=== PATIENT | male | born 1960 | race Caucasian/White ===

== ENCOUNTER 2019-07-09 09:41 | Emergency (ER) | payer BC, OTHER ==
--- NOTE | 2019-07-09 09:46 | ERPHSYRPT ---
- History of Present Illness Time Seen by Provider: 07/09/19 09:46 Historian: patient Exam Limitations: no limitations Physician History: 59 y/o white male, with no known h/o nephrolithiasis, presents with sudden severe left flank pain. began this am. pain worsening. no gross hematuria. pt has nkda and takes flomax daily. Timing/Duration: today Activities at Onset: none Quality: sharpness, stabbing Abdominal Pain Onset Location: flank (left) Pain Radiation: no radiation Severity of Pain-Max: moderate Severity of Pain-Current: moderate Modifying Factors: Improves With: nothing Associated Symptoms: nausea, No chest pain, No diaphoresis, No diarrhea, No shortness of breath, No vomiting Previous symptoms: no prior history Allergies/Adverse Reactions: No Known Drug Allergies Allergy (Verified 07/09/19 11:23) Hx Tetanus, Diphtheria Vaccination/Date Given: Yes Hx Influenza Vaccination/Date Given: No Hx Pneumococcal Vaccination/Date Given: No - Review of Systems Constitutional: No Symptoms Eyes: No Symptoms Ears, Nose, & Throat: No Symptoms Respiratory: No Symptoms Cardiac: No Symptoms Abdominal/Gastrointestinal: No Symptoms, Nausea Genitourinary Symptoms: Flank Pain Musculoskeletal: No Symptoms Skin: No Symptoms Neurological: No Symptoms Psychological: No Symptoms Endocrine: No Symptoms Hematologic/Lymphatic: No Symptoms Immunological/Allergic: No Symptoms All Other Systems: Reviewed and Negative - Past Medical History Pertinent Past Medical History: Yes Neurological History: No Pertinent History ENT History: No Pertinent History Cardiac History: No Pertinent History Respiratory History: No Pertinent History Endocrine Medical History: No Pertinent History Musculoskeletal History: No Pertinent History GI Medical History: No Pertinent History History: No Pertinent History Psycho-Social History: No Pertinent History Male Reproductive Disorders: Prostate Cancer - Past Surgical History Past Surgical History: Yes Neuro Surgical History: No Pertinent History Cardiac: No Pertinent History Respiratory: No Pertinent History Gastrointestinal: No Pertinent History Genitourinary: No Pertinent History Musculoskeletal: No Pertinent History Male Surgical History: No Pertinent History Other Surgical History: radiation seed implant - colonoscopy - Social History Smoking Status: Never smoker Exposure to second hand smoke: No Drug Use: none Patient Lives Alone: No - Nursing Vital Signs Nursing Vital Signs: Initial Vital Signs Temperature 99.5 F 07/09/19 10:07 Pulse Rate 77 07/09/19 10:07 Respiratory Rate 18 07/09/19 10:07 Blood Pressure 177/112 07/09/19 10:07 O2 Sat by Pulse Oximetry 98 07/09/19 10:07 Pain Scale Pain Intensity 0 - Physical Exam General Appearance: moderate distress, alert, anxiety Eye Exam: PERRL/EOMI, eyes nml inspection Ears, Nose, Throat Exam: normal ENT inspection, moist mucous membranes Neck Exam: normal inspection, non-tender, supple, full range of motion Respiratory Exam: normal breath sounds, lungs clear, airway intact, No chest tenderness, No respiratory distress Cardiovascular Exam: regular rate/rhythm, normal heart sounds, normal peripheral pulses Gastrointestinal/Abdomen Exam: soft, normal bowel sounds, No tenderness Rectal Exam: not done Back Exam: normal inspection, normal range of motion, CVA tenderness (left) Extremity Exam: normal inspection, normal range of motion, pelvis stable Neurologic Exam: alert, oriented x 3, cooperative, 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 Skin Exam: normal color, warm, dry Lymphatic Exam: No adenopathy SpO2 Interpretation: normal O2 Delivery: Room Air - Course Nursing assessment & vital signs reviewed: Yes Ordered Tests: Active Orders 24 hr Category Date Time Status IV Insertion STAT Care 07/09/19 10:09 Active ABDOMEN AND PELVIS W/0 CONTRAS [CT] Stat Exams 07/09/19 10:06 Completed CULTURE,URINE Stat Lab 07/09/19 11:52 Received UA W/RFX UR CULTURE Stat Lab 07/09/19 11:52 Results Medication Summary Generic Name Dose Route Start Last Admin Trade Name Freq PRN Reason Stop Dose Admin Ciprofloxacin 500 mg 07/09/19 12:34 Cipro 500 Mg PO 07/09/19 12:35 STAT ONE Discontinued Medications Generic Name Dose Route Start Last Admin Trade Name Freq PRN Reason Stop Dose Admin Hydromorphone HCl 1 mg 07/09/19 10:09 07/09/19 10:18 Hydromorphone 1 Mg/Ml Ampule IV 07/09/19 10:10 1 mg STAT ONE Administration Hydromorphone HCl Confirm 07/09/19 10:12 Hydromorphone 1 Mg/Ml Ampule Administered 07/09/19 10:13 Dose 1 mg .ROUTE .STK-MED ONE Sodium Chloride 1,000 mls @ 999 mls/hr 07/09/19 10:09 07/09/19 11:41 Sodium Chloride 0.9% 1000 Ml IV 07/09/19 11:09 Infused .Q1H1M STA Infusion Sodium Chloride Confirm 07/09/19 10:12 Sodium Chloride 0.9% 1000 Ml Administered 07/09/19 10:13 Dose 1,000 mls @ ud .ROUTE .STK-MED ONE Ketorolac Tromethamine 30 mg 07/09/19 10:09 07/09/19 10:18 Toradol 30 Mg Injection IV 07/09/19 10:10 30 mg STAT ONE Administration Ketorolac Tromethamine Confirm 07/09/19 10:12 Toradol 30 Mg Injection Administered 07/09/19 10:13 Dose 30 mg .ROUTE .STK-MED ONE Ondansetron HCl 4 mg 07/09/19 10:09 07/09/19 10:18 Zofran 4 Mg/2 Ml Vial IV 07/09/19 10:10 4 mg STAT ONE Administration Ondansetron HCl Confirm 07/09/19 10:11 Zofran 4 Mg/2 Ml Vial Administered 07/09/19 10:12 Dose 4 mg .ROUTE .STK-MED ONE Lab/Rad Data: Laboratory Results 07/09/19 Range/Units 11:52 Urine Color YELLOW (YELLOW) Urine Appearance CLEAR (CLEAR) Urine pH 6.0 (5-6) Ur Specific [place] 1.015 (1.005-1.025) Urine Protein NEGATIVE (Negative) Urine Ketones TRACE (NEGATIVE) Urine Blood 250 (0-5) Antoine/ul Urine Nitrite NEGATIVE (NEGATIVE) Urine Bilirubin NEGATIVE (NEGATIVE) Urine Urobilinogen NORMAL (0-1) mg/dL Ur Leukocyte Esterase TRACE (NEGATIVE) Urine WBC (Auto) 6-10 (0-5) /HPF Urine RBC (Auto) 26-50 (0-2) /HPF U Epithel Cells (Auto) RARE (FEW) /HPF Urine Bacteria (Auto) Pending U Non-Squamous Epi Cells FEW (FEW) /HPF Urine Mucus (Auto) MODERATE (NEGATIVE) /HPF Urine Culture Reflexed YES (NO) Urine Glucose 250 (NEGATIVE) mg/dL - Progress Progress: improved, re-examined Progress Note: 07/09/19 12:35 ct abd/pelvis-left distal ureterolithiasis with obstructive uropathy. stone 3 to 4mm. pt states he feels much better. Counseled pt/family regarding: lab results, diagnosis, need for follow-up, rad results - Departure Departure Disposition: Home Clinical Impression: Left ureteral stone, UTI (urinary tract infection) Condition: Stable Critical Care Time: No Referrals: [email or web address] REECE [Primary Care Provider] - Additional Instructions: drink plenty of fluid. add ibuprofen for pain as discussed. follow up with urologist at scheduled appointment time. Prescriptions: Hydrocodone/APAP 5/325 [[place] 5/325 mg] 1 each PO Q6H PRN PRN #10 tablet MDD 4 PRN Reason: Pain Ciprofloxacin [Cipro 500 MG] 500 mg PO BID #14 tablet Tamsulosin HCl 0.4 mg [Flomax 0.4 MG] 0.4 mg PO DAILY #7 cap
[2019-07-09] MEDS ORDERED: Zofran 4 MG/2 ML VIAL IV ONE (10:09)
[2019-07-09] MEDS ORDERED: Hydromorphone 1 mg/ml Ampule IV ONE (10:09)
[2019-07-09] MEDS ORDERED: TORAdol 30 mg Injection IV ONE (10:09)
[2019-07-09] MEDS ORDERED: Sodium Chloride 0.9% 1000 ML 1,000 ML IV STA (10:09)
[2019-07-09] MEDS ORDERED: Zofran 4 MG/2 ML VIAL ONE (10:11)
[2019-07-09] MEDS ORDERED: Hydromorphone 1 mg/ml Ampule ONE (10:12)
[2019-07-09] MEDS ORDERED: TORAdol 30 mg Injection ONE (10:12)
[2019-07-09] MEDS ORDERED: Sodium Chloride 0.9% 1000 ML 1,000 ML ONE (10:12)
--- NOTE | 2019-07-09 11:07 | XRAY ---
Indication: Left flank pain, nausea, and vomiting. Multiple contiguous axial images obtained through the abdomen and pelvis without contrast using renal stone protocol. Comparison: February 01, 2009. Lung bases demonstrates mild bibasilar dependent atelectasis/scarring. No infiltrate or effusion. Heart is not enlarged. New small hiatal hernia. New 3-4 mm distal left ureteral calculus just proximal to the UVJ. Proximal left ureter is prominent up to 9 mm along with moderate hydronephrosis and renal edema consistent with obstructive uropathy. New nonobstructing right renal punctate calculus and prostate radiation seeds. Noncontrasted stomach and bowel loops appear nonobstructed. Normal appendix. Remaining liver, gallbladder, pancreas, spleen, adrenal glands, and bladder appear unremarkable for noncontrast exam. There are minimal aortoiliac calcifications without AAA. Osseous structures intact with mild degenerative changes throughout the thoracolumbar spine. There remains small fatty inguinal hernias again left greater than right. Impression: 1. New 3-4 mm distal left ureter calculus producing obstructive uropathy as detailed. Also new nonobstructing right renal micro-calculus. 2. New small hiatal hernia and prostate radiation seeds. 3. Stable bilateral fatty inguinal hernias. CT DI 20.15
[2019-07-09 12:06] LABS: Appearance CLEAR (CLEAR); Bilirubin NEGATIVE (NEGATIVE); Blood 250 Ery/ul (0-5); Glucose 250 mg/dL (NEGATIVE); Ketones TRACE (NEGATIVE); Leukocyte Esterase TRACE (NEGATIVE); Nitrite NEGATIVE (NEGATIVE); Protein,Urine Dip NEGATIVE (Negative); Specific Gravity 1.015 (1.005-1.025); Urobilinogen NORMAL mg/dL (0-1)
[2019-07-09 12:09] LABS: Epithelial Cells RARE /HPF (FEW); Mucus MODERATE /HPF (NEGATIVE); RBC 26-50 /HPF (0-2)
[2019-07-09] MEDS ORDERED: Cipro 500 MG PO ONE (12:34)
[2019-07-09] MEDS ORDERED: Cipro 500 MG ONE (12:37)
[2019-07-09 13:00] VITALS: BP 137/81; PULSE 76; O2SAT 96
[2019-07-09 13:46] LABS: Bacteria FEW /HPF (NEGATIVE)
== END 2019-07-09 13:10 | disposition home or self-care (01) ==
LOC: ED 09:41
DX: N20.1 Calculus of ureter (principal); N39.0 Urinary tract infection, site not specified
CPT/HCPCS: 36000; 74176; 81001; 87086; 96360; 96374; 96375; 99284; J1170; J1885; J2405; A9270-GY